=== PATIENT | female | born 1990 | race African-American/Black ===

== ENCOUNTER 2020-05-05 00:08 | Inpatient (IN) | payer SELFPAY ==
[~2020-05-05] VITALS: Ht 165.1 cm; Wt 88.0 kg
[2020-05-05] MEDS ORDERED: BUTORPHANOL TARTRATE 2 MG/ML VIAL IV PRN (01:45)
[2020-05-05] MEDS ORDERED: MISOPROSTOL 100MCG TABLET VG SCH (01:45)
[2020-05-05] MEDS ORDERED: MISOPROSTOL 100MCG TABLET VG PRN (01:45)
[2020-05-05] MEDS ORDERED: LIDOCAINE HCL 1% 20ML VIAL (Pyxis) INJ INFIL SCH (01:45)
[2020-05-05 02:20] LABS: BASOPHILS % 0.7 % (0.0-2.0); EOSINOPHILS % 0.8 % (0.0-5.0); HEMATOCRIT. 33.6 % (36.0-48.0); HEMOGLOBIN. 11.1 g/dL (12.0-16.0); LYMPHOCYTES % 28.1 % (20.0-50.0); MEAN CORPUSCULAR HEMOGLOBIN 26.5 pg (28.0-32.0); MEAN CORPUSCULAR VOLUME 80.1 fL (81.0-99.0); MEAN PLATELET VOLUME 8.3 fl (7.4-10.4); NEUTROPHILS % 62.4 % (40.0-76.0); PLATELET 262 x1000/uL (130-400); RED BLOOD CELL COUNT 4.19 mill/uL (4.2-5.4); RED CELL DISTRIBUTION WIDTH 14.3 % (11.6-14.6)
[2020-05-05 02:30] LABS: INR 0.9; PARTIAL THROMBOPLASTIN TIME 21.7 sec (23.4-31.0); PROTHROMBIN TIME 9.7 sec (9.6-11.0)
[2020-05-05 02:36] LABS: CLARITY URINE CLEAR (CLEAR); COLOR URINE YELLOW (YELLOW); KETONES URINE NEGATIVE (NEGATIVE); LEUKOCYTE ESTERASE URINE NEGATIVE (NEGATIVE); NITRITE URINE NEGATIVE (NEGATIVE); OCCULT BLOOD URINE NEGATIVE (NEGATIVE); PH URINE 5.5 (4.5-8.0); PROTEIN URINE NEGATIVE (NEGATIVE); SPECIFIC GRAVITY URINE 1.006 (1.005-1.030); UROBILINOGEN URINE 0.2 E.U./dL (0.2-1.0)
[2020-05-05] MEDS: LACTATED RINGERS 1,000 ML IV SCH ×3 (02:37→05:20)
[2020-05-05 02:46] LABS: *BARBITURATES SCREEN URINE NEGATIVE (NEGATIVE); CANNABINOID URINE SCREEN NEGATIVE (NEGATIVE); PHENCYCLIDINE URINE SCREEN NEGATIVE (NEGATIVE)
[2020-05-05 02:47] LABS: *AMPHETAMINES SCREEN URINE NEGATIVE (NEGATIVE); *BENZODIAZEPINES SCREEN URINE NEGATIVE (NEGATIVE); *COCAINE SCREEN URINE NEGATIVE (NEGATIVE); METHADONE URINE SCREEN NEGATIVE (NEGATIVE); OPIATES URINE SCREEN NEGATIVE (NEGATIVE)
[2020-05-05 03:30] LABS: HEPATITIS B SURFACE ANTIGEN NEGATIVE
[2020-05-05] MEDS ORDERED: DEXT 5%/LR + PITOCIN 20UNITS/L 1,000 ML IV SCH (10:30)
[2020-05-05] MEDS ORDERED: KETOROLAC 30MG/ML VIAL IV PRN ×2 (11:15→14:45)
[2020-05-05] MEDS ORDERED: LABETALOL 5MG/ML SYR 20 MG/4 ML SYRINGE IV PRN (11:15)
[2020-05-05] MEDS ORDERED: ONDANSETRON HCL 4MG/2ML INJ IV PRN (11:15)
[2020-05-05] MEDS ORDERED: BUTORPHANOL TARTRATE 2 MG/ML VIAL IM PRN (11:15)
[2020-05-05] MEDS ORDERED: DIPHENHYDRAMINE 50MG/ML VIAL IV PRN (11:15)
[2020-05-05] MEDS ORDERED: HYDROMORPHONE HCL/PF 2MG/ML CPJ IV PRN (11:15)
[2020-05-05] MEDS ORDERED: MEPERIDINE HCL/PF 25MG/ML CPJ IV PRN (11:15)
[2020-05-05] MEDS ORDERED: BISACODYL 10MG SUPP PR PRN (14:45)
[2020-05-05] MEDS ORDERED: IBUPROFEN 400MG TABLET PO PRN (14:45)
[2020-05-05] MEDS ORDERED: RHO(D) IMMUNE GLOBULIN 300 MCG/SYR IM PRN (14:45)
[2020-05-05 17:05] VITALS: BP 97/46
[2020-05-05 18:00] VITALS: BP 97/58
[2020-05-05 20:00] VITALS: BP 105/55
[2020-05-05] MEDS: DEXT 5%/LR + PITOCIN 20UNITS/L 1,000 ML IV SCH (20:06)
[2020-05-06] VITALS: BP 101/55
[2020-05-06 04:00] VITALS: BP 104/57
[2020-05-06] MEDS: DEXT 5%/LR + PITOCIN 20UNITS/L 1,000 ML IV SCH (04:24)
[2020-05-06 07:30] VITALS: BP 102/49
[2020-05-06 09:17] LABS: BASOPHILS % 0.2 % (0.0-2.0); EOSINOPHILS % 0.6 % (0.0-5.0); HEMOGLOBIN. 11.1 g/dL (12.0-16.0); LYMPHOCYTES % 15.1 % (20.0-50.0); MEAN CORPUSCULAR HEMOGLOBIN 27.1 pg (28.0-32.0); MEAN CORPUSCULAR VOLUME 80.8 fL (81.0-99.0); NEUTROPHILS % 78.1 % (40.0-76.0); PLATELET 260 x1000/uL (130-400); RED BLOOD CELL COUNT 4.09 mill/uL (4.2-5.4); RED CELL DISTRIBUTION WIDTH 14.1 % (11.6-14.6)
[2020-05-06] MEDS: IBUPROFEN 800MG TABLET PO PRN (16:06)
[2020-05-06 17:39] VITALS: BP 114/54
[2020-05-06 21:00] VITALS: BP 111/69
[2020-05-07] MEDS: IBUPROFEN 800MG TABLET PO PRN ×2 (00:27→15:29)
[2020-05-07 04:15] VITALS: BP 99/60
[2020-05-07 08:00] VITALS: BP 112/65
[2020-05-07 15:38] VITALS: BP 117/62
[2020-05-07 20:00] VITALS: BP 109/67
[2020-05-08 04:00] VITALS: BP 107/60
[2020-05-08] MEDS: IBUPROFEN 800MG TABLET PO PRN (04:10)
[2020-05-08] MEDS ORDERED: ACETAMINOPHEN WITH CODEINE 300/30MG TABLET PO PRN (07:15)
[2020-05-08 08:00] VITALS: BP 100/66
== END 2020-05-08 11:00 | disposition home or self-care (01) | DRG 540 ==
LOC: OBSVTOIN 00:08 → 8 EST LDRP 00:08 → 8EST 16:55
PROVIDERS: ADMIT Obstetrics & Gynecology; ATTEND Obstetrics & Gynecology
PROC: 10D00Z1 Extraction of Products of Conception, Low, Open Approach (ICD-10-PCS; principal; 2020-05-05)
DX: O36.63X0 Maternal care for excessive fetal growth, third trimester, not applicable or unspecified (principal); D25.2 Subserosal leiomyoma of uterus; O32.2XX0 Maternal care for transverse and oblique lie, not applicable or unspecified; O69.81X0 Labor and delivery complicated by cord around neck, without compression, not applicable or unspecified; O34.13 Maternal care for benign tumor of corpus uteri, third trimester; Z37.0 Single live birth; Z3A.41 41 weeks gestation of pregnancy; Z20.822 Contact with and (suspected) exposure to COVID-19
CPT/HCPCS: 36415; 76805; 80305; 81003; 85025; 86592; 86703; 86762; 86850; 86900; 86920; 87340; 87426; 88307; J0690; J1885; J2274; J2590; J3010; J3490; A4315